=== PATIENT | male | born 1990 | race Caucasian/White ===

== ENCOUNTER 2018-01-22 11:19 | Emergency (ER) | payer OTHER ==
[~2018-01-22] VITALS: Ht 172.7 cm; Wt 77.1 kg
[2018-01-22 11:28] VITALS: Ht 172.7 cm; Wt 77.1 kg
[2018-01-22 13:27] LABS: BASOPHIL % 0.2 % (0-2); PLATELET COUNT 251 x10^3mcL (130-400); RED CELL DISTRIBUTION WIDTH 12.6 % (11.5-14.5)
[2018-01-22 14:01] LABS: ALBUMIN 4.2 g/dL (3.4-5.0); ALKALINE PHOSPHATASE 91 U/L (46-116); ALT/SGPT 21 U/L (16-63); AST/SGOT 19 U/L (15-37); BILIRUBIN TOTAL 0.4 mg/dL (0.20-1.00); CALCIUM 8.3 mg/dL (8.5-10.1); CARBON DIOXIDE 26.9 mmol/L (21-32); CHLORIDE SERUM 103 mmol/L (98-107); CHOLESTEROL 210 mg/dL (<200); CREATININE SERUM 0.9 mg/dL (0.7-1.3); GFR1 > 60 mL/min; GLUCOSE SERUM 97 mg/dL (74-106); HDL CHOLESTEROL 52 mg/dL (40-60); PHOSPHOROUS 3.1 mg/dL (2.5-4.9); POTASSIUM SERUM 4.2 mmol/L (3.5-5.1); SODIUM SERUM 139 mmol/L (136-145); TOTAL PROTEIN, SERUM 7.5 g/dL (6.4-8.2); URIC ACID 4.9 mg/dL (3.5-7.2)
[2018-01-22 14:47] VITALS: BP 124/81
== END 2018-01-22 14:47 | disposition home or self-care (01) ==
LOC: ED 11:19
PROVIDERS: Emergency Medicine
DX: R55 Syncope and collapse (principal); R56.9 Unspecified convulsions
CPT/HCPCS: 36415; 83880; Q0092